=== PATIENT | male | born 1945 | race Caucasian/White ===

== ENCOUNTER → 2020-04-08 13:52 | Outpatient (BNVA) | payer MEDICARE, SELFPAY | PROVIDERS: PCP Internal Medicine; Referring Provider Internal Medicine; Visit Provider Urology | DX: N40.1 Benign prostatic hyperplasia with lower urinary tract symptoms (principal); N13.8 Other obstructive and reflux uropathy; Z79.899 Other long term (current) drug therapy | CPT/HCPCS: 51798; 81002; 99212 ==